=== PATIENT | male | born 1980 | race Caucasian/White ===

== ENCOUNTER → 2021-08-05 | Outpatient (CLI) | payer OTHER ==
--- NOTE | 2021-08-05 08:36 | RAD ---
EXAM: SCROTAL SONOGRAM WITH DOPPLER. HISTORY: Bilateral testicular pain. Status post treatment for epididymitis. COMPARISON: None. FINDINGS: Grayscale and Doppler analysis of the scrotum and contents was performed. The right testicle measures 5.3 x 3.8 x 2.4 cm. The parenchyma is homogeneous without focal lesions. The epididymis appears normal. Internal flow is normal. There is a trace hydrocele. The left testicle measures 4.9 x 3.6 x 2.4 cm. The parenchyma is homogeneous without focal lesions. T he epididymis appears normal. Internal flow is normal. There is a trace hydrocele. Images of the inguinal regions reveal no hernia. IMPRESSION: 1. No cause for pain is identified. Electronically signed by: Juan M Olson MD (08/05/2021 8:33 AM) [id number]
== END ==
LOC: US 07:20
PROVIDERS: ATTEND Family Medicine
DX: N50.82 Scrotal pain (principal); N45.1 Epididymitis
CPT/HCPCS: 76870